=== PATIENT | female | born 1975 | race Caucasian/White ===

== ENCOUNTER 2016-12-27 13:00 | Inpatient (IN) | payer OTHER ==
--- NOTE | ~2016-12-27 | PN ---
Unit #: [id number] #: [id number] Patient: ANAIS BARRAZA [id number] [facility] [address] [place] [address] [id number] I MR#: [id number] NAME: NAAIS BARRAZA ROOM: [facility] Age: 41 Sex: F Admission Date: 12/27/2016 : 1975 Attending Physician: Gena Hernandez M.D. Admitting Physician: Gena Hernandez M.D. Primary Care Physician: Rosana Kelley PROGRESS NOTES DATE 12/29/2016 SUBJECTIVE Ms. Barraza is a 41-year-old white female with substance abuse and mood disorder, who was seen today and chart was reviewed, and case was discussed with the staff. The patient has been anxious, withdrawn, depressed, and rather seclusive to herself. Meanwhile, she has been compliant with treatment recommendations and has been taking the medications and tolerating them fairly well with no reported side effects. MENTAL STATUS EXAMINATION Middle-aged white female, who was casually dressed with fair personal hygiene, appears to be in no acute distress or discomfort. She was awake and alert on interaction with intact orientation. Her mood was anxious with congruent affect. She denies any suicidal or homicidal ideations. Her insight and judgement remain slightly impaired. TREATMENT PLAN 1. We will continue her on current treatment protocol. We will monitor her response to the medications and make further adjustments as needed. 2. We will continue to follow up. Dictated by... Rosana De Paz/gissel TD: 12/29/2016 13:34 JOB #: [id number] [facility] PROGRESS NOTES Page 1 of 1 X Gena Hernandez MD X PROGRESS NOTE
--- NOTE | ~2016-12-27 | HP ---
Unit #: [id number] #: [id number] Patient: GLADYS MCDOWELL [id number] [place] [address] [id number] MR#: [id number] NAME: GLADYS MCDOWELL ROOM: 61 Age: 41 Sex: F Admission Date: 12/27/2016 : 1975 Attending Physician: Gena Hernandez M.D. Admitting Physician: Gena Hernandez M.D. Primary Care Physician: Aubrey Echeverria M.D. HISTORY AND PHYSICAL HISTORY OF PRESENT ILLNESS Gladys is a 41-year-old female admitted on 12/27/[address] ordered by the kiln operator helper to come here for treatment from methamphetamines, THC and opiates. PAST MEDICAL HISTORY Chronic back pain. PAST SURGICAL HISTORY 1. History of spinal fusion. 2. section x2. 3. Tonsillectomy. ALLERGIES No known drug allergies. SOCIAL HISTORY Smokes 2 to 3 packs of cigarettes daily. Binge alcohol use and meth and marijuana use. She is currently and living alone. FAMILY HISTORY Noncontributory. REVIEW OF SYSTEMS CONSTITUTIONAL: No fever or chills. HEENT: Denies any sore throat, ear pain or runny nose. CARDIOVASCULAR: Denies chest pain, irregular heart rhythm or palpitations. CHEST: Denies shortness of breath or cough. No hemoptysis. GASTROINTESTINAL: Denies nausea, vomiting, diarrhea or chronic constipation. ENDOCRINE: Denies history of increased thirst or urination. No recent significant weight loss or gain. GENITOURINARY: Denies dysuria, frequency, or hematuria. SKIN: Denies any rashes. HEMATOLOGIC: Denies history of increased bleeding or bruising. MUSCULOSKELETAL: Denies any hot, swollen joints. No generalized muscle pain. NEUROLOGIC: Denies problems with vision or speech. No frequent, severe headaches. No numbness, tingling or weakness in any extremities. Denies loss of bladder or bowel control. CURRENT MEDICATIONS 1. Paxil. Unit #: [id number] #: [id number] Patient: GLADYS MCDOWELL 2. Vistaril. PHYSICAL EXAMINATION GENERAL: Alert, oriented, in no acute distress. VITAL SIGNS: Blood pressure 131/81, heart rate 81, respirations 18, temperature 98.4. HEIGHT: 5 feet 4. WEIGHT: 152 pounds. SKIN: Warm and dry without rash or lesion. HEENT: Normocephalic. TMs not viewed. Oral and nasal passages clear. Conjunctivae clear. PERRLA. EOMs intact. NECK: Supple without lymphadenopathy or thyromegaly. HEART: Regular rate and rhythm without murmur. LUNGS: Clear. ABDOMEN: Soft, nontender, without masses or hepatosplenomegaly. : Not done. EXTREMITIES: No evidence of cyanosis, clubbing or edema. Moves all without focal deficit. NEUROLOGICAL: Grossly within normal limits. Cranial Nerves: II: Visual adams are intact. III, IV AND : Extraocular movements are intact. Pupils are equal, round and reactive to light. V: Facial sensation is grossly normal. VII: Facial movements and expression are normal. VIII: Auditory acuity grossly intact. IX, X: Uvula is midline. Phonation is normal. XI: Patient shrugs shoulders and turns head normally. XII: Tongue protrudes in the midline. Sensory and Motor Function: Sensory and motor sensation is grossly normal. Motor: moves all extremities well. Coordination: Gait is normal. Deep Tendon Reflexes: Intact. IMPRESSION Psychiatric admission. RECOMMENDATIONS PSYCHIATRIC: Per psychiatrist. MEDICAL: No contraindications to participate in facility's activities. MEDICAL PROGNOSIS Good. MEDICAL CONDITION Stable. Dictated by..Sujatha Blair/bradley TD: 12/28/2016 15:21 JOB #: [id number] Unit #: [id number] #: [id number] Patient: GLADYS MCDOWELL HISTORY AND PHYSICAL Page 1 of 1 X TRESA PETERS APRN HISTORY AND PHYSICAL
--- NOTE | ~2016-12-27 | PA ---
Unit #: [id number] #: [id number] Patient: ANAIS BARRAZA [id number] [facility] [address] [place] [address] [id number] I MR#: [id number] NAME: ANAIS BARRAZA ROOM: P261 Age: 41 Sex: F Admission Date: 12/27/2016 : 1975 Date of Assessment: Attending Physician: Gena Hernandez M.D. Admitting Physician: Gena Hernandez M.D. Primary Care Physician: Aubrey Echeverria M.D. PSYCHIATRIC ASSESSMENT DATE OF SERVICE 12/27/2016. IDENTIFYING DATA Ms. Barraza is a 41-year-old white female, who is a resident of [place], [place], and was brought to the hospital by her fiance. CHIEF COMPLAINT "For the last 90 days, I've been in prison and I got out of the prison this morning." HISTORY OF PRESENT ILLNESS Ms. Barraza is a 41-year-old white female, who presented to the hospital accompanied by her fiance, stating that she was in prison for 90 days and got out and senior systems software engineer from [facility] referred her that she comes here for treatment, "if I don't meet criteria for here, then I've to go back to prison, I went to prison because I failed my drugs in twice, it was positive for methamphetamine, opioids, and cannabis." However, at the same time, the patient was seen to be showing very poor insight into her situation, stating that she is just here for her mental health issues, even though she was here for chemical dependency issues and when probed, she stated that she used cannabis and when I asked about other drugs, she stated something showed up in her system and that she does not really use it and at that time she is admitted that with methamphetamine and I then questioned her again as to how it got in her system, she then reluctantly agreed that she used it, but that is not something that she uses it, but at the same time, she had a prescription of [place] and Xanax, which was apparently 3 months old as she has been in prison for 3 months and has been going to Dr. Tapia as well as to Dr. Rubalcava and has been getting Xanax from one and pain pills from the other and as such, has been mixing them with street drugs and has been having some legal issues, but at the same time showing very poor insight into her situation and had a feeling that she was not really motivated towards sobriety as she was trying to mask methamphetamine abuse and overall chemical dependency issues and asking about her [place] and Xanax. She does however, reports depression and anxiety upon presentation with feelings of hopelessness and that she often has thoughts of dying and being tired of living and then after told that she qualifying only for intensive outpatient treatment program because she does not really need any detox, she is saying that she has not any suicidal intent or plan, the patient stated "I'm suicidal. I was suicidal when I came into the prison and now that I'm going to go back there. While I was in prison, I was contemplating different ways to kill myself." She obviously was seen to be trying to manipulate the system and trying to get Unit #: [id number] #: [id number] Patient: ANAIS BARRAZA in here and using whatever words and statements she has to that she can get into the hospital. Overall, she appears to have poor prognosis. SUBSTANCE ABUSE HISTORY The patient does have a history of alcohol dependence as she reports that she was drinking a pint of whiskey daily until she got incarcerated and also has been smoking 4 joints on daily basis and has used acid in the past and methamphetamine few times and has been getting benzodiazepines and opioids from outpatient providers and I am not clear if she has been honest to her psychiatrist or to her primary care physician about her extensive history of substance abuse before she got prescriptions of Xanax and [place] from different providers. PAST PSYCHIATRIC HISTORY The patient has had history of inpatient psychiatric treatment at [facility] in the past as well as outpatient treatment currently. She is not active in any treatment program. Review of the medical records indicate that she was on Paxil and Vistaril. PAST MEDICAL HISTORY The patient's medical history is significant for chronic back pain. ALLERGIES No known medication allergies. PERSONAL AND SOCIAL HISTORY A 41-year-old white female, who reports that she is single, unemployed, and lives alone and has poor social support system. MENTAL STATUS EXAMINATION Middle-aged white female, who was casually dressed with fair personal hygiene, appears to be in no acute distress or discomfort. She was awake and alert on interaction with intact orientation to time, place, and person. Her mood was anxious and depressed with a congruent affect. Her speech was slow and restricted in content. Her thought processes were disorganized with some looseness of associations. She denies any suicidal or homicidal ideations. Her insight and judgment remain significantly impaired. DIAGNOSTIC IMPRESSION Psychiatric: Major depressive disorder, recurrent, moderate, without psychotic features; cannabis dependence, moderate; methamphetamine abuse, moderate; opioid abuse, moderate; benzodiazepine abuse, moderate. Medical: Chronic back pain. Stressors: Moderate psychosocial stressors. TREATMENT PLAN 1. The patient has presented with history of mood disorder and substance abuse and has been decompensating and will need inpatient hospitalization for safety and stabilization. We will start her back on her home medications including Paxil and Vistaril. We will start her on detox protocol as well. 2. Supportive therapy was provided to the patient. 3. Safe, structured, and nourishing environment will be reported. ESTIMATED LENGTH OF STAY 5 to 7 days. ABILITY TO HELP SELF Unit #: [id number] #: [id number] Patient: ANAIS BARRAZA Limited. WILLINGNESS TO HELP SELF The patient appears to be willing to help self. STRENGTHS 1. Communicative. 2. Cooperative. PROBLEMS 1. Chronic dysphoric symptoms. 2. Chronic chemical dependency. 3. Poor social support system. DISCHARGE CRITERIA This will be contingent upon the patient's ability to show resolution of her depression and anxiety and her ability to go through detox without having any significant withdrawal symptoms as well as her ability to stay safe to herself, particularly after discharge from the hospital. Dictated by... Gena Hernandez M.D. SADIA/gissel TD: 12/29/2016 01:22 JOB #: [id number] PSYCHIATRIC ASSESSMENT Page 1 of 1 X Gena Hernandez MD PSYCHIATRIC ASSESSMENT
--- NOTE | ~2016-12-27 | DS ---
Unit #: [id number] #: [id number] Patient: ANAIS BARRAZA [id number] [facility] [address] [place] [address] [id number] I MR#: [id number] NAME: ANAIS BARRAZA ROOM: P261 Age: 41 Sex: F Admission Date: 12/27/2016 : 1975 Discharge Date: 01/01/2017 Attending Physician: Gena Hernandez M.D. Primary Care Physician: Aubrey Echeverria M.D. DISCHARGE SUMMARY IDENTIFYING DATA Ms. Barraza is a 41-year-old white female who is a resident of [place], [place] and was brought to the hospital by her fiance and a chief complaint of "for the last 90 days I have been in residential and I got out of the residential this morning." HISTORY OF PRESENT ILLNESS Please see initial psychiatric evaluation. PAST PSYCHIATRIC HISTORY Please see initial psychiatric evaluation. PAST MEDICAL HISTORY Please see initial psychiatric evaluation. HOSPITAL COURSE The patient was admitted to the adult [facility] and [facility] at [facility] and it was noted that her presentation has been quite manipulative as she initially came in wanting treatment that was court ordered and that she was scared that if she does not get any treatment, she is going to go back to residential and was not meeting criteria for inpatient psychiatric or chemical dependence treatment as she was in residential for 90 days and apparently just got out of the residential this morning. However, she then when given that recommendation for outpatient program, changed her story and stated that then she is suicidal and therefore was admitted on that basis but as soon as she came on the unit, she wanted me to get her pain medications and nerve medications and I confronted her about her chemical dependency and she was trying to mask and minimize and was seen to be in significant denial but was told that she has not been on those medications for 90 days as she was in residential and she would not be prescribed those as she cannot justify those medications and given her history of chemical dependency, however, Paxil was initiated and I noticed that when she was under my care back in March 2016 that Paxil was started and she was given prescription at the time of discharge, she never filled that prescription and as a matter of fact she still has that prescription on her with a date of March 25, 2016 and getting poor compliance outside of the hospital and poor motivation towards treatment. However, Paxil was initiated and started up at 40 mg daily and BuSpar was also given to help her with the anxiety and she was seen to be doing fairly well and recommendation for outpatient chemical dependency and psychiatric treatment was made and it was decided patient will be discharged from our care. Unit #: [id number] #: [id number] Patient: ANAIS BARRAZA DISCHARGE DIAGNOSES PSYCHIATRIC: 1. Major depressive disorder, recurrent, moderate, without psychotic features. 2. Cannabis dependence, moderate. 3. Methamphetamine dependence, moderate. 4. Opiate abuse, moderate. 5. Benzodiazepine abuse, moderate. MEDICAL: Chronic back pain. STRESSORS: Moderate psychosocial stressors. DISCHARGE MEDICATIONS 1. Paxil 40 mg daily for depression. 2. BuSpar 10 mg b.i.d. for anxiety. CONDITION AT DISCHARGE Stable. PROGNOSIS Fair. Dictated by... Rosana De Paz/bradley TD: 01/01/2017 20:36 JOB #: [id number] DISCHARGE SUMMARY Page 1 of 1 X Gena Hernandez MD X DISCHARGE SUMMARY
--- NOTE | ~2016-12-27 | PN ---
Unit #: [id number] #: [id number] Patient: ANAIS BARRAZA [id number] [facility] [address] [place] [address] [id number] I MR#: [id number] NAME: ANAIS BARRAZA ROOM: [facility] Age: 41 Sex: F Admission Date: 12/27/2016 : 1975 Attending Physician: Gena Hernandez M.D. Admitting Physician: Gena Hernandez M.D. Primary Care Physician: Rosana Kelley PROGRESS NOTES DATE OF SERVICE: 12/31/2016 SUBJECTIVE Ms. Barraza is a 41-year-old white female, who was seen today, chart was reviewed, and case was discussed with the staff. She has been anxious, withdrawn, and rather seclusive to herself. Meanwhile, she has been cooperative with treatment recommendations and has been taking the medications and tolerating them fairly well with no reported side effects. MENTAL STATUS EXAMINATION Middle-aged white female, who was casually dressed with fair personal hygiene, appears to be in no acute distress or discomfort. She was awake and alert on interaction with intact orientation. Her mood was anxious with congruent affect. She denies any suicidal or homicidal ideations. Her insight and judgement remain slightly impaired. TREATMENT PLAN 1. We will continue her on current medications and treatment protocol. We will monitor her response to the medications and make further adjustments as needed. 2. We will continue to follow up. Dictated by... Rosana De Paz/gissel TD: 12/31/2016 17:57 JOB #: [id number] [facility] PROGRESS NOTES Page 1 of 1 X Gena Hernandez MD X PROGRESS NOTE
[~2016-12-27 13:00] MED LIST: ACYCLOVIR400 MG PO; BACLOFEN10 MG; DICLOFENAC PO; PREDNISONE; PYRIDIUM PO; TYLENOL #3 PO; VOLTAREN50 MG PO
[2016-12-28 14:20] LABS: BASOPHIL% 0.5 % (0-2.5); EOSINOPHIL# 0.2 X10e3 (0-0.7); EOSINOPHIL% 3.7 % (0.0-7.0); HEMATOCRIT 37.9 % (35.0-45.0); HEMOGLOBIN 12.5 gm/dL (12.0-16.0); LYMPHOCYTE# 1.9 X10e3 (1.0-3.5); LYMPHOCYTE% 36.6 % (17.0-45.0); MEAN CELL VOLUME 93.7 FL (83-96); MEAN CORPUSCULAR HEMOGLOBIN 30.8 PG (28-34); MEAN CORPUSCULAR HGB CONC 32.8 g/dL (30-36); MEAN PLATELET VOLUME 9.4 FL (6.5-11.5); MONOCYTE# 0.6 X10e3 (0-1.0); MONOCYTE% 11.3 % (3.0-12.0); NEUTROPHIL# 2.5 X10e3 (1.5-7.1); NEUTROPHIL% 47.9 % (40-75); PLATELET COUNT 206 X10e3 (140-420); RED BLOOD COUNT 4.05 X10e (3.90-5.30); RED CELL DISTRIBUTION WIDTH 12.8 % (11.0-15.5); WHITE BLOOD COUNT 5.1 X10e3 (4.0-10.5)
[2016-12-28 14:31] LABS: DIFF IND NO
[2016-12-28 14:48] LABS: THYROID STIMULATING HORMONE 0.71 uIU/ml (0.34-5.60)
[2016-12-28 14:53] LABS: ALBUMIN SERUM 3.5 g/dL (3.5-5.0); BILIRUBIN,TOTAL 0.2 mg/dL (0.2-2.0); BUN/CREATININE RATIO 24.28; CALCIUM SERUM 8.5 mg/dL (8.4-10.2); CREATININE SERUM 0.7 mg/dL (0.6-1.4); GLOM FILT RATE Estimated 106.1 mL/min (>60); POTASSIUM 3.8 mmol/L (3.5-5.1); PROTEIN TOTAL SERUM 5.8 g/dL (6.0-8.3)
[2016-12-28 14:55] LABS: FREE THYROXIN (T4) 0.6 ng/dL (0.58-1.64)
[2016-12-29 13:11] LABS: URINE APPEARANCE CLEAR; URINE BILIRUBIN NEG (NEG); URINE BLOOD NEG (NEG); URINE COLOR YELLOW; URINE GLUCOSE NEG (NEG); URINE KETONE NEG (NEG); URINE LEUKOCYTE ESTERASE NEG (NEG); URINE NITRATE NEG (NEG); URINE PROTEIN NEG (NEG); URINE SPECIFIC GRAVITY 1.017 (1.003-1.035); URINE UROBILINOGEN 0.2 MG/DL (NEG)
[2016-12-29 13:21] LABS: AMPHETAMINE NEG (NEG); BARBITURATES NEG (NEG); BENZODIAZEPINES NEG (NEG); COCAINE NEG (NEG); MARIJUANA NEG (NEG); OPIATES NEG (NEG); TRICYCLIC ANTIDEPRESSANTS NEG (NEG); U METHADONE NEG (NEG)
== END 2017-01-01 12:10 | disposition home or self-care (01) | DRG 885 ==
LOC: POF 15:13 → P2L 15:13
PROVIDERS: Psychiatry & Neurology Psychiatry
PROC: HZ2ZZZZ Detoxification Services for Substance Abuse Treatment (ICD-10-PCS; principal; 2016-12-27)
DX: F33.1 Major depressive disorder, recurrent, moderate (principal); F15.20 Other stimulant dependence, uncomplicated; F41.1 Generalized anxiety disorder; M54.9 Dorsalgia, unspecified; G89.29 Other chronic pain; F12.20 Cannabis dependence, uncomplicated; F11.10 Opioid abuse, uncomplicated; F19.10 Other psychoactive substance abuse, uncomplicated
CPT/HCPCS: 80053; 80307; 81003; 84439; 84443; 85025

== ENCOUNTER 2017-01-06 12:14 | Emergency (ER) | payer OTHER ==
--- NOTE | ~2017-01-06 | CT4 ---
[facility] A Service of [facility] & [facility] RADIOLOGY TEXT RESULTS PATIENT: ANAIS MCDOWELL LOCATION: [facility] : [birth year] UNIT #: [id number] AGE: [address]: Denis Yates MD SEX: F ORDER DR: [id number] [facility] [address] [place], [place] [address] [id number] MR#: [id number] Acc #: [id number] NAME: ANAIS MCDOWELL : 1975 SEX: F STUDY DATE/TIME: 01/06/2017 13:48 UNIT: [facility] ROOM: STUDY DESCRIPTION: CT Abd and Pelv Wo Cont Attending Physician: Denis Yates M.D. Ordering Physician: Denis Yates M.D. Primary Care Physician: Kiko Rubalcava M.D. MEDICAL IMAGING REPORT This report is preliminary unless electronic signature is present EXAM CT abdomen and pelvis without contrast 01/06/2017 1348 hours. HISTORY 41-year-old with complaint of bilateral flank pain and blood in urine for 2 days. Prior history of kidney stones. COMPARISON 04/28/2016 TECHNIQUE Helical noncontrasted images were obtained from the lung bases through the pubic symphysis without oral or intravenous contrast. Sagittal and coronal reconstructions were performed. Total exam DLP 686 mGy-cm. This CT exam was performed with one or more of the following radiation dose reduction techniques: Automatic exposure control, adjustment of mA and/or kV according to patient size, and iterative reconstruction. FINDINGS Images through the lung bases are clear. There are no effusions. The distal esophagus is normal. Noncontrasted images through the abdomen demonstrate a normal appearance to the liver, spleen, pancreas, gallbladder and bile ducts. The adrenal glands are normal. The kidneys demonstrate multiple punctate 2 mm sized nonobstructing intrarenal calculi in both kidneys. There is no pelvocaliectasis or ureterectasis. Previous dilatation on the right side has resolved. There is no ureteral calculus seen. The bladder is normal. There are multiple bilateral pelvic phleboliths which are stable. The stomach and small bowel have a normal noncontrasted appearance. There [facility] A Service of [facility] & [facility] RADIOLOGY TEXT RESULTS PATIENT: ANAIS MCDOWELL LOCATION: [facility] : [birth year] UNIT #: [id number] AGE: [address]: Denis Yates MD SEX: F ORDER DR: is no evidence of appendicitis. There is no colonic wall thickening. The uterus is anteverted. There is no adnexal mass or free fluid. There is postop change of lumbar fusion at L4-5 with a stable appearance. IMPRESSION 1. There are small, multiple nonobstructing intrarenal calculi within both kidneys similar to that seen on 04/28/2016. There is no pelvocaliectasis, ureterectasis or ureteral calculus. Previous mildly obstructing distal right ureteral stone has resolved. 2. Stable pelvic phleboliths. 3. Normal stomach, small bowel, colon and appendix. 4. Anteverted uterus with no adnexal mass. There are bilateral tubal ligation clips. STAT * RESULT Dictated by... Yashira Candelario M.D. THIS IS AN ELECTRONICALLY VERIFIED REPORT Yashira Candelario M.D. at 01/08/2017 9:23 AM YADIRA/ally TD: 01/06/2017 14:15 JOB #: [id number] MEDICAL IMAGING REPORT Page 1 of 1 COPY
[2017-01-06 13:15] LABS: URINE SOURCE CLEAN CATCH
[2017-01-06 13:21] LABS: URINE APPEARANCE CLOUDY; URINE BILIRUBIN NEG (NEG); URINE BLOOD NEG (NEG); URINE COLOR DK YELLOW; URINE GLUCOSE NEG (NEG); URINE KETONE NEG (NEG); URINE LEUKOCYTE ESTERASE 2+ (NEG); URINE NITRATE POS (NEG); URINE PROTEIN NEG (NEG); URINE SPECIFIC GRAVITY 1.019 (1.003-1.035)
[2017-01-06 13:23] LABS: CULTURE INDICATED? YES; U HYALINE CASTS AUWI 0-2 /[LPF]; URINE BACTERIA AUWI 1+ (NEGATIVE); URINE SQUAMOUS EPITHELIAL CELL MOD /[HPF]
[2017-01-06 13:30] LABS: BASOPHIL% 0.3 % (0-2.5); EOSINOPHIL# 0.1 X10e3 (0-0.7); EOSINOPHIL% 2.2 % (0.0-7.0); HEMATOCRIT 35.6 % (35.0-45.0); HEMOGLOBIN 11.8 gm/dL (12.0-16.0); LYMPHOCYTE# 1.9 X10e3 (1.0-3.5); LYMPHOCYTE% 30.1 % (17.0-45.0); MEAN CELL VOLUME 93.5 FL (83-96); MEAN CORPUSCULAR HGB CONC 33.1 g/dL (30-36); MEAN PLATELET VOLUME 8.6 FL (6.5-11.5); MONOCYTE# 0.5 X10e3 (0-1.0); MONOCYTE% 8.1 % (3.0-12.0); NEUTROPHIL# 3.7 X10e3 (1.5-7.1); NEUTROPHIL% 59.3 % (40-75); PLATELET COUNT 214 X10e3 (140-420); RED BLOOD COUNT 3.81 X10e (3.90-5.30); RED CELL DISTRIBUTION WIDTH 13.1 % (11.0-15.5); WHITE BLOOD COUNT 6.2 X10e3 (4.0-10.5)
[2017-01-06 13:38] LABS: DIFF IND NO
[2017-01-06 13:39] LABS: AMPHETAMINE NEG (NEG); BARBITURATES NEG (NEG); BENZODIAZEPINES POS (NEG); COCAINE NEG (NEG); MARIJUANA NEG (NEG); OPIATES NEG (NEG); TRICYCLIC ANTIDEPRESSANTS NEG (NEG); U METHADONE NEG (NEG)
[2017-01-06 13:56] LABS: ALBUMIN SERUM 3.6 g/dL (3.5-5.0); ALKALINE PHOSPHATASE 71 U/L (32-92); ALT (SGPT) 15 U/L (10-40); AST (SGOT) 16 U/L (10-42); BILIRUBIN, DIRECT <0.1 mg/dL (0.0-0.2); BILIRUBIN,INDIRECT 0.5 mg/dL (0.0-0.9); BILIRUBIN,TOTAL 0.6 mg/dL (0.2-2.0); BLOOD UREA NITROGEN 12 mg/dL (9-23); CALCIUM SERUM 8.2 mg/dL (8.4-10.2); CARBON DIOXIDE 27 mmol/L (22-31); CHLORIDE 105 mmol/L (100-111); CPK (CREATINE PHOSPHOKINASE) 89 IU/L (26-140); CREATININE SERUM 0.6 mg/dL (0.6-1.4); GLOM FILT RATE Estimated 111.6 mL/min (>60); GLUCOSE FASTING 110 mg/dL (70-110); LIPASE 17 U/L (22-51); POTASSIUM 3.4 mmol/L (3.5-5.1); PROTEIN TOTAL SERUM 6.1 g/dL (6.0-8.3); SODIUM 137 mmol/L (135-145)
== END 2017-01-06 14:45 | disposition home or self-care (01) ==
LOC: CED 12:14
PROVIDERS: Emergency Medicine
DX: N39.0 Urinary tract infection, site not specified (principal); M54.5 Low back pain; F43.10 Post-traumatic stress disorder, unspecified; F17.210 Nicotine dependence, cigarettes, uncomplicated; Z88.8 Allergy status to other drugs, medicaments and biological substances
CPT/HCPCS: 36415; 74176; 80048; 80076; 80307; 81003; 82550; 83690; 84703; 85025; 87086; 96361; 96374; 96375; 99284; J1885; J2405